=== PATIENT | female | born 1955 | race Caucasian/White ===

== ENCOUNTER 2020-07-09 20:18 | Emergency (ER) | payer MEDICARE ==
[~2020-07-09 20:18] MED LIST: ALPRAZOLAM ER1 MG PO; FLEXERIL10 MG PO; FLUOXETINE HCL20 MG PO; MACROBID100 MG PO; METFORMIN HCL500 MG PO; METHADONE10 MG PO; PANTOPRAZOLE SO40 MG PO; PROVENTIL HFA6.7 GM INH; REGLAN5 MG PO; SUCRALFATE1 GM PO; SYNTHROID100 MCG PO; SYNTHROID125 MCG PO; SYNTHROID75 MCG PO; TENORMIN50 MG PO; TRAZODONE 100M100 MG PO; ZENPEP DR 40,01 EACH PO
== END 2020-07-09 22:44 | disposition home or self-care (01) ==
LOC: FER 20:18
DX: H57.89 Other specified disorders of eye and adnexa (principal); I25.2 Old myocardial infarction; I10 Essential (primary) hypertension; E11.9 Type 2 diabetes mellitus without complications
CPT/HCPCS: 99283

== ENCOUNTER 2021-03-22 09:42 | Emergency (ER) | payer MEDICARE, OTHER ==
[2021-03-22 11:33] LABS: BASOPHIL 0.7 % (0-2); HCT 48.1 % (37.0-47.0); HGB 15.4 g/dl (12.5-16.0); LYMPHOCYTE 22.1 % (15-48); MCH 29.9 pg (25.0-31.0); MCV 93.4 fL (78.0-100.0); MONOCYTE 7.2 % (0-12); MPV 9.6 fL (6.0-9.5); NEUTROPHIL 67.7 % (41-80); NRBC 0; PLT 328 K/uL (150-400); RBC 5.15 M/uL (4.20-5.40); RDW 12.8 % (11.5-14.0); WBC 10.6 K/uL (4.0-10.5)
[2021-03-22 12:03] LABS: ALBUMIN 3.5 g/dL (3.4-5.0); BILIRUBIN - TOTAL 0.6 mg/dL (0.2-1.0); BUN/CREAT RATIO (CALC) 16.4 RATIO; CREATININE 0.73 mg/dL (0.51-0.95); GLOBULIN (CALCULATION) 4.6 g/dL; TOTAL PROTEIN 8.1 g/dL (6.4-8.2)
[2021-03-22] MEDS ORDERED: ZPAK PO (14:36)
[2021-03-22] MEDS ORDERED: MEDROL 4MG DOSEP4 MG PO (14:36)
== END 2021-03-22 14:46 | disposition home or self-care (01) ==
LOC: FER 09:42
PROVIDERS: Emergency Medicine
DX: J44.0 Chronic obstructive pulmonary disease with (acute) lower respiratory infection (principal); J18.9 Pneumonia, unspecified organism; E11.9 Type 2 diabetes mellitus without complications; I10 Essential (primary) hypertension; Z88.0 Allergy status to penicillin; Z88.2 Allergy status to sulfonamides; Z88.5 Allergy status to narcotic agent; Z88.8 Allergy status to other drugs, medicaments and biological substances; Z79.84 Long term (current) use of oral hypoglycemic drugs; Z79.899 Other long term (current) drug therapy
CPT/HCPCS: 36415; 71045; 80053; 84443; 84484; 85025

== ENCOUNTER 2021-05-02 14:39 | Emergency (ER) | payer MEDICARE, OTHER ==
[~2021-05-02 14:39] MED LIST changes: +MEDROL 4MG DOSEP4 MG PO; +ZPAK PO
== END 2021-05-02 16:11 | disposition home or self-care (01) ==
LOC: FER 14:39
DX: S42.001A Fracture of unspecified part of right clavicle, initial encounter for closed fracture (principal); E11.9 Type 2 diabetes mellitus without complications; I10 Essential (primary) hypertension; J44.9 Chronic obstructive pulmonary disease, unspecified; Z88.0 Allergy status to penicillin; Z88.2 Allergy status to sulfonamides; Z88.5 Allergy status to narcotic agent; Z88.6 Allergy status to analgesic agent; W06.XXXA Fall from bed, initial encounter; Y93.89 Activity, other specified; Y92.009 Unspecified place in unspecified non-institutional (private) residence as the place of occurrence of the external cause
CPT/HCPCS: 73000; 73030

== ENCOUNTER 2021-07-06 17:43 | Emergency (ER) | payer OTHER, MEDICARE ==
[2021-07-06 20:35] LABS: BASOPHIL 0.8 % (0-2); EOSINOPHIL 1.6 % (0-7); HCT 46.4 % (37.0-47.0); HGB 14.7 g/dl (12.5-16.0); LYMPHOCYTE 18.6 % (15-48); MCH 29.5 pg (25.0-31.0); MCHC 31.7 g/dL (32.0-36.0); MCV 93.2 fL (78.0-100.0); MPV 9.8 fL (6.0-9.5); NEUTROPHIL 72.4 % (41-80); NRBC 0; PLT 359 K/uL (150-400); RBC 4.98 M/uL (4.20-5.40); RDW 12.9 % (11.5-14.0); WBC 19.1 K/uL (4.0-10.5)
[2021-07-06 20:56] LABS: CREATININE 0.7 mg/dL (0.51-0.95); POTASSIUM 4.1 mmol/L (3.5-5.1)
== END 2021-07-06 22:45 | disposition home or self-care (01) ==
LOC: FER 17:43
PROVIDERS: Nurse Practitioner Family
DX: S40.011A Contusion of right shoulder, initial encounter (principal); S60.221A Contusion of right hand, initial encounter; S80.12XA Contusion of left lower leg, initial encounter; I10 Essential (primary) hypertension; J44.9 Chronic obstructive pulmonary disease, unspecified; Z88.0 Allergy status to penicillin; Z88.1 Allergy status to other antibiotic agents; Z88.2 Allergy status to sulfonamides; Z88.6 Allergy status to analgesic agent; V49.50XA Passenger injured in collision with unspecified motor vehicles in traffic accident, initial encounter
CPT/HCPCS: 36415; 71046; 73030; 73130; 73564; 80048; 84484; 85025; 85379; 93005